=== PATIENT | female | born 1935 | race Caucasian/White ===

== ENCOUNTER 2016-10-25 07:06 | Outpatient (CLI) ==
--- NOTE | 2016-10-25 07:54 | US ---
EXAM: RENAL ULTRASOUND, BILATERAL HISTORY: Chronic kidney disease FINDINGS: Ultrasound renal, bilateral. Weaver-scale ultrasound and color Doppler imaging was perform ed. The right kidney measures 7.8 x 3.5 x 3.4 centimeters. The left kidney measures 8.4 x 4.0 x 4.0 centimeters. Renalcortical echogenicity is slightly increased which may be related to the patient's chronic medic al renal disease. General renal cortical volume appears grossly normal. There are scattered small renal cortical cysts most measuring around a centimeter in size or less and some less than optimally characterized by ultrasound secondary to size. No definitely suspicious renal cortical masses iden tified. No hydronephrosis. Urinary bladder was within normal limits for degree of distension. IMPRESSION: 1. Slight increased cortical echogenicity may be related to chronic medical renal disease. Renal co rtical volume within normal limits. No hydronephrosis. 2. Scattered tiny renal cortical cysts bilaterally. 3. Urinary bladder within normal limits.
== END 2016-10-25 07:07 | disposition home or self-care (01) ==
LOC: RAD 07:06
PROVIDERS: ATTEND Family Medicine
DX: N18.9 Chronic kidney disease, unspecified (principal)
CPT/HCPCS: 76770

== ENCOUNTER 2017-11-23 13:49 | Outpatient (CLI) ==
--- NOTE | 2017-11-23 15:06 | DEXA ---
Exam: Bone densitometry DEXA scan performed on the [employer] device Comparison: 12/15/2010. Reason for exam: Menopause FINDINGS: Imaging is obtained of the lumbar spine and deemed to be adequate for interpretation. Total BMD of the lumbar spine measures 1.389 grams per centimeter squared T-score 1.7. Z-score 3.7 WHO classification suggest normal bone mineral density Imaging is obtained of the left hip and right hip and deemed to be adequate for interpretation. Total BMD of the left hip measures 0.685 grams per centimeter squared T-score -2.6. Z-score -0.5 Total BMD of the right hip measures 0.555 grams per centimeter squared T-score -3.6. Z-score -1.5 WHO classification suggest a osteoporosis. Impression: 1. 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 2. WHO fracture risk assessment tool (FRAX) 10-year probability of fracture risk. Major osteoporotic fracture risk over 10 years. 22.4%. Hip fracture risk over 10 years. 8.6%.
== END 2017-11-23 13:50 | disposition home or self-care (01) ==
LOC: RAD 13:49
PROVIDERS: ATTEND Family Medicine
DX: Z12.31 Encounter for screening mammogram for malignant neoplasm of breast (principal); N95.8 Other specified menopausal and perimenopausal disorders; Z13.820 Encounter for screening for osteoporosis; E89.40 Asymptomatic postprocedural ovarian failure; Z78.0 Asymptomatic menopausal state
CPT/HCPCS: 77067